=== PATIENT | male | born 1960 | race Two or more races ===

== ENCOUNTER → 2024-12-09 | Outpatient (CLI) | payer MEDICARE, MEDICAID, SELFPAY ==
--- NOTE | 2024-12-09 12:18 | XR_ITS ---
Examination: Abdomen sonogram, complete Date and time of exam: December 09, 2024 1227 hours INDICATIONS: Abdominal pain beginning one week ago. Technique: Multiple real-time grayscale transabdominal sonographic images of the abdomen have been obtained. Findings: Normal gallbladder Normal common bile duct 0.3 cm Pancreatic head 3.5 cm Aorta not enlarged. Liver 13.5 cm right lobe liver cyst 25 mm fatty infiltration Normal hepatopedal portal venous flow Patent IVC Right kidney 11.0 cm cortex 2.0 cm Left kidney 11.0 cm cortex 2.1 cm Mild renal pedicle scar formation Upper pole left renal cyst 9 mm Spleen 11.0 cm IMPRESSION: Normal gallbladder Fatty liver
== END | disposition home or self-care (01) ==
PROVIDERS: PCP Physician Assistant; Referring Provider Internal Medicine Gastroenterology; Visit Provider Internal Medicine Gastroenterology
DX: K76.0 Fatty (change of) liver, not elsewhere classified (principal)
CPT/HCPCS: 76700